=== PATIENT | female | born 1970 | race Caucasian/White ===

== ENCOUNTER → 2017-02-05 | Day surgery (SDC) | payer OTHER ==
[~2017-02-05] MED LIST: ADVIL200 M2 PO; BIOTIN2500 MCG PO; CALCIUM 500 +1 EAC2 PO; CYANOCOBAL1000 MCG/M INJ; FISH OIL 1,2001 EAC2 PO; IBUPROFEN800 MG PO; KLONOPIN2 MG PO; LIORESAL10 MG PO; MULTI VITAMIN1 EACH PO; NASONEX17 GM; PANTOPRAZOLE SO40 MG PO; PRISTIQ100 MG PO; TYLOX1 CAP 5/50 PO; VITAMIN C500 M2 PO; VITAMIN D-32000 UNI1 PO; VITAMIN D31000 UNI1 PO; WELLBUTRIN SR150 MG PO; ZANTAC150 M1 PO
--- NOTE | ~2017-02-05 | OR ---
Unit #: [id number] #: [id number] Patient: ZORAIDA GOMEZ [id number] [address] [place], [place] [address] [id number] MR#: [id number] NAME: ZORAIDA GOMEZ ROOM: Date of Procedure: 02/05/2017 Admission Date: 02/05/2017 Surgeon: Daniel Oakley Jr., M.D. : 1970 Attending Physician: Daniel Oakley Jr., M.D. Primary Care Physician: Jessica Eli A.P.R.N. OPERATIVE REPORT INDICATIONS FOR PROCEDURE The patient is a 46-year-old white female, who has had a known past history for dysphagia with esophageal stenosis and now has developed progressive dysphagia recently indicating probable recurrent stenosis. She does have acid reflux and has been on medicine for this. She is brought in this time for upper endoscopy with esophageal dilatation at her request. She understands the procedure including the risks, including that of perforation and bleeding, and consents. PREOPERATIVE DIAGNOSIS Recurrent esophageal stenosis. POSTOPERATIVE DIAGNOSES Recurrent esophageal stenosis, noting [id number] stenosis along with some mild atrophic gastritis. ANESTHESIA MAC anesthesia. PROCEDURES PERFORMED Flexible fiberoptic esophagogastroduodenoscopy with biopsies of the distal esophagus and esophageal dilatation from 18 to 20 mm balloon dilation. DESCRIPTION OF PROCEDURE The patient was positioned in Lin position with left side down. After being given MAC anesthesia, the Olympus XQ scope was passed in the proximal esophagus. The entire esophagus was examined. Proximal two-thirds appeared normal. In the area of the GE junction, there was some mild to moderate stenosis with some mildly irregular tissue. This did not appear to be a cancer though. The scope was advanced through the GE junction without significant resistance into the cardia, fundic, and antral region of the stomach and retroflexed back up to the area of the cardia. There was no significant hiatal hernia present. The scope was then advanced down the prepyloric region. There were some small erythematous lines in the antrum, but no evidence of any ulcer disease. The stomach distended well without evidence of rigidity. The scope was advanced into the prepyloric region through the pylorus and duodenal bulb and down to the second portion of the duodenum and the entire duodenal portion. The examination was within normal limits. The scope was brought back up to the area of the fundus of the stomach and 18 to 20 mm balloon dilator was placed and brought up in the distal esophagus and used to dilate the distal esophagus from 18 to 19 to 20 mm very slowly. The Unit #: [id number] #: [id number] Patient: ZORAIDA GOMEZ dilator was removed. There was minimal oozing from the distal esophagus with no evidence of any perforation or significant bleeding, indicating a good dilatation. A small amount of tissue was then biopsied from the area and sent for pathology. The scope was slowly removed and the patient tolerated the procedure well and discharged in satisfactory condition. Dictated by... Daniel Oakley Jr., M.D. ESTER/lexy TD: 02/06/2017 03:43 JOB #: [id number] OPERATIVE REPORT Page 1 of 1 X Daniel Oakley MD X PROCEDURE OPERATIVE NOTE
== END | disposition home or self-care (01) ==
LOC: COPS 12:17
DX: K22.2 Esophageal obstruction (principal); K29.40 Chronic atrophic gastritis without bleeding; K21.9 Gastro-esophageal reflux disease without esophagitis; F41.9 Anxiety disorder, unspecified; Z88.0 Allergy status to penicillin; Z88.2 Allergy status to sulfonamides; Z90.710 Acquired absence of both cervix and uterus; Z95.0 Presence of cardiac pacemaker; E66.9 Obesity, unspecified; Z68.30 Body mass index [BMI] 30.0-30.9, adult
CPT/HCPCS: 88305; J2250